=== PATIENT | male | born 1985 | race Caucasian/White ===

== ENCOUNTER 2022-05-15 11:54 | Emergency (ER) | payer MEDICAID ==
[~2022-05-15] VITALS: Ht 180.3 cm; Wt 74.8 kg
--- NOTE | 2022-05-15 12:50 | NUR ---
PATIENT WAS MSE BY DR JIMENEZ IN ROOM 04A.
[2022-05-15] MEDS ORDERED: CLINDAMYCIN PHOSPHATE IV 600 MG in IV DEXTROSE 5% 100 ML IV ONE (13:00)
[2022-05-15] MEDS ORDERED: IV NORMAL SALINE 1000 ML BAG IV ONE (13:15)
[2022-05-15] MEDS ORDERED: TDAP DIPH,PERTUSS,TET VAC/PF 0.5 ML DISP.SYRIN IM ONE ×2 (13:15→14:23)
[2022-05-15 13:20] LABS: HEMATOCRIT 42.6 % (36.7-47.1); MEAN CORPUSCULAR HEMOGLOBIN 30.2 uug (23.8-33.4); MEAN CORPUSCULAR VOLUME 89.9 fL (73.0-96.2); PLATELET COUNT (AUTO) 286 K/uL (152-348)
[2022-05-15 13:29] LABS: BILIRUBIN,DIRECT 0.1 mg/dL (0.0-0.2); BILIRUBIN,TOTAL 0.5 mg/dL (0.2-1.0); CREATININE 0.9 mg/dL (0.6-1.3); POTASSIUM 4.1 mmol/L (3.5-5.1); TOTAL PROTEIN, SERUM 7.6 g/dL (6.4-8.2)
[2022-05-15] MEDS ORDERED: MUPI22OI2 TP (14:27)
[2022-05-15] MEDS ORDERED: CLIN300C12 PO (14:27)
[2022-05-15] MEDS ORDERED: NEOMY/BACITRA/POLYMYXIN B OINT UD PACKET TP ONE ×2 (15:00→15:17)
--- NOTE | 2022-05-15 15:00 | NUR ---
PATIENT WAS SEEN BY MARCELINA MEZA AT BEDSIDE FOR EVAL.
[2022-05-15 15:26] VITALS: BP 140/89
--- NOTE | 2022-05-15 15:30 | NUR ---
Patient discharged to home in stable condition. Written and verbal after care instructions given. Patient verbalizes understanding of instructions. Stressed follow up or return to ER for worsening s/s.
--- NOTE | 2022-05-15 15:39 | NUR ---
Social work consult was requested for a homeless patient in the emergency room. Patient is 37-year-old male admitted to the hospital for a spider bite. Upon social media marketing specialist assessment, patient is alert and oriented X4. Patient presents with euthymic mood and full range affect. Patient presents with coherent, and goal directed thought process. Patient presents with good judgment and insight. SW explored patients social support. Patient states he does not have any support or a primary personal care home administrator. SW explored patients living situation. Patient stated he is currently homeless and living in [place]. SW gave the patient resources and gave him the information for [place] for [address] [address] ([phone]). SW explored patients financial status. Patient states that he is receives food stamps and general relief. SW assessed history of substance abuse. Patient denies alcohol. Patient states that he smokes marijuana daily. There is no toxicology report. SW assessed psychiatric diagnosis. Patient states he does not have a psychiatric diagnosis. Patient was given Homeless waiver was signed and given to the patient and a copy was placed in the chart. SW provided emotional support, validation, and coping strategies. Patients discharge plan is to go to a homeless fdc. MARCELINA Patient will be offered a TAP card if needed.
== END 2022-05-15 15:35 | disposition home or self-care (01) ==
LOC: ER 11:54
DX: S51.831A Puncture wound without foreign body of right forearm, initial encounter (principal); W57.XXXA Bitten or stung by nonvenomous insect and other nonvenomous arthropods, initial encounter; Y92.89 Other specified places as the place of occurrence of the external cause; L03.113 Cellulitis of right upper limb; Z59.00 Homelessness unspecified; L98.8 Other specified disorders of the skin and subcutaneous tissue
CPT/HCPCS: 36415; 73090; 80048; 80076; 83605; 85025; 87040 ×2; 90471; 90715; 96365; 99284; J3490; J7040; A4663